=== PATIENT | male | born 1995 | race Caucasian/White ===

== ENCOUNTER 2017-04-27 13:11 | Emergency (ER) | payer OTHER ==
[~2017-04-27] VITALS: Ht 165.1 cm; Wt 54.4 kg
[~2017-04-27 13:11] MED LIST: CODACE30 PO; Excedrin Extra1 EACH PO
== END 2017-04-27 14:10 | disposition home or self-care (01) ==
LOC: ER 13:11
DX: S60.221A Contusion of right hand, initial encounter (principal); F17.200 Nicotine dependence, unspecified, uncomplicated; W19.XXXA Unspecified fall, initial encounter
CPT/HCPCS: 73130; 99283

== ENCOUNTER 2018-07-24 08:27 | Emergency (ER) | payer OTHER ==
[~2018-07-24] VITALS: Ht 167.6 cm; Wt 50.8 kg
[2018-07-24] MEDS ORDERED: ATHLETE'S FOO35.4 GM TOP (09:45)
== END 2018-07-24 09:50 | disposition home or self-care (01) ==
LOC: ER 08:27
DX: B35.3 Tinea pedis (principal); Z79.82 Long term (current) use of aspirin; F17.200 Nicotine dependence, unspecified, uncomplicated
CPT/HCPCS: 73630; 99283-25

== ENCOUNTER 2018-10-28 21:58 | Emergency (ER) | payer OTHER ==
[~2018-10-28] VITALS: Ht 167.6 cm; Wt 54.4 kg
[~2018-10-28 21:58] MED LIST changes: +ATHLETE'S FOO35.4 GM TOP
== END 2018-10-29 00:13 | disposition home or self-care (01) ==
LOC: ER 21:58
DX: J02.9 Acute pharyngitis, unspecified (principal); Z79.82 Long term (current) use of aspirin; F17.200 Nicotine dependence, unspecified, uncomplicated; Z79.899 Other long term (current) drug therapy
CPT/HCPCS: 99283

== ENCOUNTER 2018-12-11 23:05 | Emergency (ER) | payer OTHER ==
[~2018-12-11] VITALS: Ht 167.6 cm; Wt 50.8 kg
== END 2018-12-11 23:34 | disposition home or self-care (01) ==
LOC: ER 23:05
DX: Z03.89 Encounter for observation for other suspected diseases and conditions ruled out (principal); F17.200 Nicotine dependence, unspecified, uncomplicated
CPT/HCPCS: 99282

== ENCOUNTER 2019-01-01 18:37 | Emergency (ER) | payer OTHER ==
[~2019-01-01] VITALS: Ht 167.6 cm; Wt 49.5 kg
[2019-01-01] MEDS ORDERED: Amoxicillin500 MG PO (19:29)
== END 2019-01-01 19:56 | disposition home or self-care (01) ==
LOC: ER 18:37
DX: K04.7 Periapical abscess without sinus (principal); K02.9 Dental caries, unspecified; F17.200 Nicotine dependence, unspecified, uncomplicated
CPT/HCPCS: 99282

== ENCOUNTER 2019-02-05 12:44 | Emergency (ER) | payer OTHER ==
[~2019-02-05] VITALS: Ht 167.6 cm; Wt 52.2 kg
[~2019-02-05 12:44] MED LIST changes: +Amoxicillin500 MG PO
[2019-02-05] MEDS ORDERED: Naprosyn500 MG PO (13:16)
[2019-02-05] MEDS ORDERED: Amoxicillin500 MG PO (13:16)
== END 2019-02-05 13:26 | disposition home or self-care (01) ==
LOC: ER 12:44
DX: L03.211 Cellulitis of face (principal); K02.9 Dental caries, unspecified; K03.81 Cracked tooth; F17.200 Nicotine dependence, unspecified, uncomplicated
CPT/HCPCS: 99282

== ENCOUNTER 2019-03-13 10:44 | Emergency (ER) | payer OTHER ==
[~2019-03-13] VITALS: Ht 167.6 cm; Wt 52.2 kg
[~2019-03-13 10:44] MED LIST changes: +Naprosyn500 MG PO
== END 2019-03-13 11:22 | disposition home or self-care (01) ==
LOC: ER 10:44
DX: J02.8 Acute pharyngitis due to other specified organisms (principal); F17.210 Nicotine dependence, cigarettes, uncomplicated
CPT/HCPCS: 87081; 87430; 99283; J1100

== ENCOUNTER 2019-09-17 13:58 | Emergency (ER) | payer OTHER ==
[~2019-09-17] VITALS: Ht 167.6 cm; Wt 52.2 kg
[2019-09-17] MEDS ORDERED: Naprosyn500 MG PO (15:33)
[2019-09-17] MEDS ORDERED: AMOCLA875 PO (15:33)
[2019-10-15] MEDS ORDERED: AMOCLA875 PO (14:09)
== END 2019-09-17 15:42 | disposition home or self-care (01) ==
LOC: ER 13:58
DX: K04.7 Periapical abscess without sinus (principal); F17.210 Nicotine dependence, cigarettes, uncomplicated
CPT/HCPCS: 41800; 99283-25

== ENCOUNTER 2020-03-15 20:04 | Emergency (ER) | payer OTHER ==
[~2020-03-15] VITALS: Ht 167.6 cm; Wt 49.9 kg
[~2020-03-15 20:04] MED LIST changes: +AMOCLA875 PO
== END 2020-03-15 21:34 | disposition home or self-care (01) ==
LOC: ER 20:04
DX: R10.9 Unspecified abdominal pain (principal); F17.210 Nicotine dependence, cigarettes, uncomplicated
CPT/HCPCS: 99283

== ENCOUNTER 2020-06-09 17:46 | Emergency (ER) | payer OTHER ==
[~2020-06-09] VITALS: Ht 167.6 cm; Wt 56.7 kg
[2020-06-09] MEDS ORDERED: AMOCLA875 PO (18:29)
== END 2020-06-09 18:42 | disposition home or self-care (01) ==
LOC: ER 17:46
DX: K04.7 Periapical abscess without sinus (principal); Z87.891 Personal history of nicotine dependence
CPT/HCPCS: 99282; A9270

== ENCOUNTER 2020-08-10 23:47 | Emergency (ER) | payer OTHER ==
[~2020-08-10] VITALS: Ht 167.6 cm; Wt 52.2 kg
[2020-08-11 00:27] LABS: Source, Urine Clean Catch
[2020-08-11 00:29] LABS: Bilirubin, Urine Neg (Neg); Blood, Urine Neg (Neg); Glucose Qualitative, Urine Neg (Neg); Ketones, Urine Neg (Neg); Leukocyte Esterase, Urine Neg (Neg); Nitrite, Urine Neg (Neg); Protein, Urine 1+ (Neg); Urobilinogen, Urine NORM (Normal)
[2020-08-11 00:41] LABS: Appearance, Urine Clear (Clear); Color, Urine Yellow (P-Yellow)
== END 2020-08-11 01:11 | disposition home or self-care (01) ==
LOC: ER 23:47
PROVIDERS: Emergency Medicine
DX: R30.0 Dysuria (principal); Z87.891 Personal history of nicotine dependence
CPT/HCPCS: 99283

== ENCOUNTER 2020-11-04 11:15 | Emergency (ER) | payer OTHER ==
[~2020-11-04] VITALS: Ht 165.1 cm; Wt 52.0 kg
[2020-11-04] MEDS ORDERED: Veetids 500500 MG PO (11:27)
== END 2020-11-04 11:31 | disposition home or self-care (01) ==
LOC: ER 11:15
DX: K04.7 Periapical abscess without sinus (principal); F17.200 Nicotine dependence, unspecified, uncomplicated
CPT/HCPCS: 99282

== ENCOUNTER 2020-12-10 13:35 | Emergency (ER) | payer OTHER ==
[~2020-12-10] VITALS: Ht 167.6 cm; Wt 52.2 kg
[~2020-12-10 13:35] MED LIST changes: +Veetids 500500 MG PO
== END 2020-12-10 14:50 | disposition home or self-care (01) ==
LOC: ER 13:35
DX: L98.8 Other specified disorders of the skin and subcutaneous tissue (principal)
CPT/HCPCS: 99282

== ENCOUNTER 2021-06-22 17:06 | Emergency (ER) | payer OTHER ==
[~2021-06-22] VITALS: Ht 165.1 cm; Wt 52.2 kg
[2021-06-22] MEDS ORDERED: CLIN150 PO (17:18)
== END 2021-06-22 17:20 | disposition home or self-care (01) ==
LOC: ER 17:06
DX: K04.7 Periapical abscess without sinus (principal); F17.200 Nicotine dependence, unspecified, uncomplicated
CPT/HCPCS: 99282

== ENCOUNTER 2021-12-27 13:10 | Emergency (ER) | payer OTHER ==
[~2021-12-27] VITALS: Ht 167.6 cm; Wt 50.8 kg
[~2021-12-27 13:10] MED LIST changes: +CLIN150 PO
[2021-12-27] MEDS ORDERED: AMOCLA875 PO (13:34)
== END 2021-12-27 13:36 | disposition home or self-care (01) ==
LOC: ER 13:10
DX: K04.7 Periapical abscess without sinus (principal); F17.210 Nicotine dependence, cigarettes, uncomplicated
CPT/HCPCS: 99282

== ENCOUNTER 2024-06-08 15:48 | Emergency (ER) | payer OTHER ==
[~2024-06-08] VITALS: Ht 167.6 cm; Wt 54.4 kg
[~2024-06-08 15:48] MED LIST changes: +ACET500 PO; +IBUP600 PO
[2024-06-08 16:21] VITALS: BP 136/89
[2024-06-08] MEDS ORDERED: Ketorolac Tromethamine 30mg Vial IM ONE (16:30)
[2024-06-08] MEDS ORDERED: Diphth,Pertuss(Acell),Tet Vac 0.5 ML VIAL IM ONE (16:40)
== END 2024-06-08 17:44 | disposition other institution (70) ==
LOC: ER 15:48
DX: S61.210A Laceration without foreign body of right index finger without damage to nail, initial encounter (principal); Z23 Encounter for immunization; F17.210 Nicotine dependence, cigarettes, uncomplicated; W26.8XXA Contact with other sharp object(s), not elsewhere classified, initial encounter; Z59.89 Other problems related to housing and economic circumstances
CPT/HCPCS: 12041; 73140; 90471; 90715; 99283-25

== ENCOUNTER 2025-01-25 22:58 | Emergency (ER) | payer OTHER | END 2025-01-25 23:49 | disposition home or self-care (01) | LOC: ER 22:58 | DX: K04.7 Periapical abscess without sinus (principal); K02.9 Dental caries, unspecified; F17.200 Nicotine dependence, unspecified, uncomplicated ==

== ENCOUNTER 2025-02-17 21:18 | Emergency (ER) | payer OTHER ==
[~2025-02-17] VITALS: Ht 165.1 cm; Wt 52.2 kg
[2025-02-17 21:26] VITALS: BP 116/97
[2025-02-17] MEDS ORDERED: Cleocin HCl150 MG PO (23:13)
[2025-02-17] MEDS ORDERED: PERIDEX15 ML MM (23:13)
[2025-02-20] MEDS ORDERED: PERIDEX15 ML MM (09:38)
== END 2025-02-17 23:32 | disposition home or self-care (01) ==
LOC: ER 21:18
DX: K04.7 Periapical abscess without sinus (principal); K02.9 Dental caries, unspecified; K05.10 Chronic gingivitis, plaque induced; F17.200 Nicotine dependence, unspecified, uncomplicated
CPT/HCPCS: 99282; A9270

== ENCOUNTER 2025-03-09 13:36 | Emergency (ER) | payer OTHER ==
[~2025-03-09] VITALS: Ht 165.1 cm; Wt 51.3 kg
[~2025-03-09 13:36] MED LIST changes: +Cleocin HCl150 MG PO; +PERIDEX15 ML MM
[2025-03-09 14:04] VITALS: BP 129/89
[2025-03-09] MEDS ORDERED: AMOCLA875 PO (21:47)
== END 2025-03-09 18:30 | disposition home or self-care (01) ==
LOC: ER 13:36
DX: K08.89 Other specified disorders of teeth and supporting structures (principal); F17.200 Nicotine dependence, unspecified, uncomplicated
CPT/HCPCS: 99282; A9270